=== PATIENT | male | born 1965 | race Caucasian/White ===

== ENCOUNTER → 2019-08-07 16:37 | Outpatient (BNVA) | payer MEDICAID, SELFPAY | PROVIDERS: Family Provider Family Medicine; PCP Nurse Practitioner; Visit Provider Nurse Practitioner Family | DX: R05 Cough (principal); J06.9 Acute upper respiratory infection, unspecified; B96.89 Other specified bacterial agents as the cause of diseases classified elsewhere; F17.210 Nicotine dependence, cigarettes, uncomplicated; Z71.89 Other specified counseling | CPT/HCPCS: 87400 ==

== ENCOUNTER 2019-09-24 11:29 | Outpatient (CLI) | payer MEDICAID, SELFPAY ==
--- NOTE | 2019-09-24 11:42 | XR_ITS ---
WS: [id number] Right hip, AP and frog-leg views, AP pelvis, 09/24/2019 Clinical Data: PAIN IN JOINT Comparison: Left hip, 08/20/2016, right hip, 10/09/2013. Findings: No fractures or dislocations are seen. The hip joints are intact The soft tissues are not remarkable. The adjacent pelvis is normal. The SI joints and pubic symphysis are normal. XR/XR hip RT 2-3V wo/w pel* [id number] Impression: Negative right hip. Negative AP pelvis.
== END 2019-09-24 11:30 | disposition home or self-care (01) ==
LOC: RAD 11:33
PROVIDERS: PCP Nurse Practitioner Family; Visit Provider Nurse Practitioner Family
DX: M25.551 Pain in right hip (principal); M25.50 Pain in unspecified joint
CPT/HCPCS: 73502

== ENCOUNTER → 2019-09-30 12:05 | Outpatient (BNVA) | payer MEDICAID, SELFPAY | PROVIDERS: PCP Nurse Practitioner Family; Visit Provider Nurse Practitioner Family | DX: I10 Essential (primary) hypertension (principal); R60.0 Localized edema | CPT/HCPCS: 80048; 83880 ==

== ENCOUNTER 2019-10-20 07:09 | Outpatient (CLI) | payer MEDICAID, SELFPAY ==
--- NOTE | 2019-10-20 07:15 | USCV_ITS ---
Juve Yadav Age: 54 Gender: M : 1965 Exam Date: 10/20/2019 07:27 Ordering Phys: Micaela Samuel Technologist: Redd Caballero [place]am Location[place] [facility] [place] Indication: PEDAL EDEMA BP: 115 / 78 HR: 72 Rhythm: Sinus Technical Quality: Technically difficult study MEASUREMENTS (Male / Female) Normal Values 2D ECHO LV Diastolic Diameter PLAX 4.6 cm 4.2 - 5.9 / 3.9 - 5.3 cm LV Systolic Diameter PLAX 2.8 cm IVS Diastolic Thickness 1.2 cm 0.6 - 1.0 / 0.6 - 0.9 cm IVS Systolic Thickness 1.2 cm LVPW Diastolic Thickness 1.4 cm 0.6 - 1.0 / 0.6 - 0.9 cm LVPW Systolic Thickness 1.5 cm LVOT Diameter 2.1 cm LV Ejection Fraction 2D Teich 71.0 % LV Ejection Fraction MOD 2C 50.7 % LV Ejection Fraction 2C AL 50.8 % LA Diameter 5.6 cm LA Width 3.6 cm LA Height 5.5 cm RA Width 4.0 cm RA Height 4.8 cm M-MODE LV Diastolic Diameter MM 6.2 cm 4.2 - 5.9 / 3.9 - 5.3 cm LV Systolic Diameter MM 3.8 cm LV Ejection Fraction MM Teich 68.3 % IVS Diastolic Thickness MM 1.7 cm 0.6 - 1.0 / 0.6 - 0.9 cm IVS Systolic Thickness MM 2.7 cm LVPW Diastolic Thickness MM 1.4 cm 0.6 - 1.0 / 0.6 - 0.9 cm LVPW Systolic Thickness MM 2.2 cm RV Diastolic Diameter MM 2.1 cm Aortic Annulus Diameter 5.2 cm LA Ao Ratio MM 1.1 MV E Point Septal Separation 0.7 cm DOPPLER AV Peak Velocity 176.0 cm/s LVOT Peak Velocity 132.0 cm/s AV Area Cont Eq vti 2.6 cm squared AV Area Cont Eq pk 2.5 cm squared MV Area PHT 5.0 cm squared Mitral E to A Ratio 1.2 MV E' Velocity 6.0 cm/s Mitral E to MV E' Ratio 23.7 Mitral E to LV E' Lateral Ratio 20.6 Mitral E to LV E' Septal Ratio 28.7 TR Peak Velocity 253.0 cm/s TR Peak Gradient 25.6 mmHg TV Peak E Velocity 67.0 cm/s Right Atrial Pressure 3.0 mmHg Pulmonary Artery Systolic Pressu 28.6 mmHg PV Peak Velocity 111.0 cm/s FINDINGS Left Ventricle Normal left ventricular cavity size. Normal left ventricular systolic function. No regional wall motion abnormalities. Left ventricular ejection fraction is estimated at 68 %. Grade I/IV diastolic dysfunction (abnormal relaxation filling pattern), normal to mildly elevated filling pressures. Right Ventricle The right ventricle is normal in size and function. Right Atrium The right atrium is normal in size. Left Atrium The left atrium is normal in size. Mitral Valve Mildly thickened mitral valve. No mitral valve stenosis. Trace mitral valve regurgitation. Aortic Valve Mild aortic valve calcification. No aortic valve stenosis. No aortic valve regurgitation. Tricuspid Valve Structurally normal tricuspid valve without significant stenosis or regurgitation. Pulmonary artery systolic pressure is normal. Pulmonic Valve Structurally normal pulmonic valve without significant stenosis. There is no pulmonic regurgitation. Pericardium Normal pericardium without effusion. Aorta Normal ascending aorta dimension. CONCLUSIONS 1-Normal left ventricular cavity size. Normal left ventricular systolic function. No regional wall motion abnormalities. Left ventricular ejection fraction is estimated at 68 %. Grade I/IV diastolic dysfunction (abnormal relaxation filling pattern), normal to mildly elevated filling pressures. 2-Mild aortic valve calcification. No aortic valve stenosis. No aortic valve regurgitation. 3-Mildly thickened mitral valve. No mitral valve stenosis. Trace mitral valve regurgitation. 4-There is no pericardial effusion. 5-Pulmonary artery systolic pressure is within normal limits. 6-Right atrial pressure is around 5 mm of mercury. 7-There are no prior echocardiogram studies to compare. Carlito Hightower MD (Electronically Signed) Final Date: 20 October 2019 19:00 S
== END 2019-10-20 07:10 | disposition home or self-care (01) ==
LOC: RAD 07:09
PROVIDERS: PCP Nurse Practitioner Family; Visit Provider Nurse Practitioner Family
DX: R60.0 Localized edema (principal); I08.0 Rheumatic disorders of both mitral and aortic valves
CPT/HCPCS: 93306

== ENCOUNTER 2019-11-09 11:42 | Outpatient (CLI) | payer MEDICAID, SELFPAY ==
--- NOTE | 2019-11-09 11:45 | USCV_ITS ---
Juve Yadav Age: 54 Gender: M : 1965 Exam Date: 11/09/2019 12:09 Ordering Phys: Micaela Samuel Technologist: Raven Brown [place]am [place] [facility] [place]: HISTORY: Lower extremity edema. PROCEDURES: Bilateral duplex Venous Insufficiency study of the Deep and Superficial systems was carried out according to normal protocol with the patient in supine positon for deep system and dependent position for the superficial system. FINDINGS: All deep veins demonstrated compressibility without evidence of intraluminal thrombus or increased echogenicity. Spectral analysis of Doppler signals demonstrates normal response to compression maneuvers indicating patency without obstruction. Reflux determinations were made with the patient in the dependent position, the weight being on the contralateral leg. Vein measurements and reflux times are listed below were applicable. No notable reflux was seen at this time. CONCLUSIONS No evidence of DVT in the above-mentioned identifiable veins. No significant venous reflux Normal venous dimensions bilaterally The venous dimensions and the depth from the surface are as mentioned above Dr Adrienne Shelton MD [facility] (Electronically Signed) Final Date: 11 November 2019 00:40 S
== END 2019-11-09 11:43 | disposition home or self-care (01) ==
LOC: RAD 11:45
PROVIDERS: PCP Nurse Practitioner Family; Visit Provider Nurse Practitioner Family
DX: R60.0 Localized edema (principal)
CPT/HCPCS: 93970

== ENCOUNTER 2020-02-19 12:32 | Outpatient (CLI) | payer MEDICAID, SELFPAY ==
--- NOTE | 2020-02-19 12:39 | XR_ITS ---
WS: [id number] Chest 2 views, 02/19/2020 Clinical Data: FATIGUE/COUGH/COPD Comparison: Portable chest, 02/24/2018. Findings: No nodules, masses or effusions are seen. The heart is normal. The pulmonary vascularity is not increased. No pneumonia or pneumothorax is seen. There is minimal linear atelectasis overlying t he left lower lobe. The aortic arch and descending aorta are tortuous. XR/XR chest 2V* [id number] Impression: Atherosclerosis.
== END 2020-02-19 12:33 | disposition home or self-care (01) ==
LOC: RAD 12:35
PROVIDERS: PCP Nurse Practitioner Family; Visit Provider Nurse Practitioner Family
DX: R53.83 Other fatigue (principal); R05 Cough; J44.9 Chronic obstructive pulmonary disease, unspecified; I70.90 Unspecified atherosclerosis
CPT/HCPCS: 71046

== ENCOUNTER → 2020-04-27 14:30 | Outpatient (BNVA) | payer MEDICAID, SELFPAY | PROVIDERS: PCP Nurse Practitioner Family; Visit Provider Surgery | DX: Z11.59 Encounter for screening for other viral diseases (principal); R19.5 Other fecal abnormalities | CPT/HCPCS: 87635 ==

== ENCOUNTER 2020-05-03 07:23 | Day surgery (SDC) | payer MEDICAID, SELFPAY ==
[2020-05-02 09:07] VITALS: BMI 47.7
[2020-05-03 07:41] VITALS: BP 139/83; PULSE 90; RESP 18; TEMP 36.3; O2SAT 91
[2020-05-03 07:57] LABS: Glucose Point of Care 144 mg/dL (70-110)
[2020-05-03] MEDS: sodium chloride 0.9% 1,000 ML 30 ML IV (07:58)
--- NOTE | 2020-05-03 08:12 | ANES.PREANE2 ---
Pre-Anesthetic Assessment Pre-Anesthetic Assessment: Height/Weight: Height 1.78 m Weight 151.046 kg Temp Pulse Resp BP Pulse Ox 97.4 F L 90 18 139/83 91 05/03/20 07:41 05/03/20 07:41 05/03/20 07:41 05/03/20 07:41 05/03/20 07:41 Preop Diagnosis: panendoscopy Proposed Procedure: Operation Date: 05/03/20 08:30 Proposed Procedures p EGD/Colon 53811 22688 R19.5(Not Applicable) - Stan Lyle MD s Colonoscopy(Not Applicable) - Stan Lyle MD Familial anesthetic complications: Wakes up violent Was Beta Romelia taken within 24 hours: N/A Last intake: Intake NPO > 8hrs Last Liquid Date 05/02/20 Last Solid Date 05/01/20 Social: Social History: Tobacco and No alcohol Exam: Pre-Anes Outpt Exam: alert, oriented x 3, clear to auscultation bilaterally and regular rate & rhythm Airway: Cervical ROM: WNL MP: 4 Dentition: Other (no teeth) Additional comments: white film over tongue -uses steroid inhaler Pulmonary: Pulmonary: COPD (2 L NC) and Sleep apnea (cpap) Comments: noncompliant w/ O2 and CPAP use CV/HEM: CV/HEM: HTN Metabolic: Metabolic: DM, Hyperlipidemia and Morbid obesity Anesthetic Plan: ASA status: 4 Anesthesia: MAC Risk of > 500 ml blood loss (7ml/kg in children): No Meds/Allergies Current Medications: Current Medications Generic Name Dose Route Start Last Admin Trade Name Freq PRN Reason Stop Dose Admin Sodium Chloride 1,000 mls @ 30 ml s/hr 05/03/20 07:45 05/03/20 07:58 Sodium Chloride 0.9% IV 05/04/20 07:44 30 mls/hr .Q24H JOURDAN Administration PFSH Anesthesia PFSH: Medical History COPD (chronic obstructive pulmonary disease) DDD (degenerative disc disease) Diabetes Diabetic neuropathy HTN (hypertension) On home O2 LALI on CPAP Surgical History H/O colonoscopy 9 years ago H/O oral surgery H/O thumb surgery S/P hernia repair S/P tonsillectomy Family History Father Stroke Other CAD (coronary artery disease) Cancer Diabetes Denies family history of Anesthesia complication Bleeding disorder Social History Smoking and tobacco status: current every day smoker Alcohol intake: never Household members: spouse Marital status: Current occupational status: disabled History of recent travel: No Data Anesthesia Other Labs: Laboratory Results - last 48 hr 05/03/20 07:51 POC Glucose 144 H Cardiac Studies: No Data to Display
--- NOTE | 2020-05-03 09:40 | W.PM.OPSFHP ---
Same Day Surgery H&P Indication for Procedure/HPI DATE OF PROCEDURE: May 03, 2020 CHIEF COMPLAINT/INDICATIONFOR SURGICAL PROCEDURE: panendoscopy PREOP DIAGNOSIS: panendoscopy PLANNED PROCEDRUE: Operation Date: 05/03/20 08:30 Proposed Procedures p EGD/Colon 61070 55225 R19.5(Not Applicable) - Stan Lyle MD s Colonoscopy(Not Applicable) - Stan Lyle MD Medications/Allergies* Home Medications Medication Instructions Recorded Confirmed Type albuterol sulfate 1.25 mg/3 mL 1.25 mg INHALATION QID PRN 07/03/19 05/02/20 History solution for nebulization aspirin 81 mg tablet,delayed 81 mg PO DAILY 07/03/19 05/02/20 History release baclofen 10 mg tablet 10 mg PO TID PRN 07/03/19 05/02/20 History budesonide-formoterol HFA 160 2 puff INHALATION BID 07/03/19 05/02/20 History mcg-4.5 mcg/actuation aerosol inhaler gabapentin 400 mg capsule 400 mg PO QID cap 07/03/19 05/02/20 History oxycodone 10 mg tablet 10 mg PO Q4H PRN 07/03/19 05/02/20 History pravastatin 10 mg tablet 10 mg PO DAILY 07/03/19 05/02/20 History clonidine HCl 0.1 mg tablet 0.1 mg PO BID PRN 07/15/19 05/02/20 History cholecalciferol (vitamin D3) 75 75 mcg PO DAILY 09/30/19 05/02/20 History mcg (3,000 unit) tablet metformin 850 mg tablet 1,000 mg PO BID tab 09/30/19 05/02/20 History methocarbamol 500 mg tablet 500 mg PO TID 04/01/20 05/02/20 History oxygen-air delivery systems #1 04/01/20 04/01/20 History oxygen-air delivery systems #1 04/01/20 04/01/20 History Allergies/Adverse Reactions Allergy/AdvReac Type Severity Reaction Status Date / Time erythromycin base Allergy Severe ALGY-Anaphy Verified 04/01/20 10:42 laxis meclizine Allergy Severe ALGY-Swell Verified 04/01/20 10:42 Lip/Tongue/Throat tramadol [From Ultram] Allergy Severe ALGY-Rash Verified 04/01/20 10:42 varenicline [From Chantix] Allergy Severe ALGY-Swell Verified 04/01/20 10:42 Lip/Tongue/Throat Current Medications: Generic Name Dose Route Start Last Admin Trade Name Brina PRN Reason Stop Dose Admin Sodium Chloride 1,000 mls @ 30 mls/hr 05/03/20 07:45 05/03/20 07:58 Sodium Chloride 0.9% IV 05/04/20 07:44 30 mls/hr .Q24H JOURDAN Administration Pertinent History/Comorbid Conditions* Medical History (Updated 04/01/20 @ 11:16 by Stan Lyle MD) COPD (chronic obstructive pulmonary disease) DDD (degenerative disc disease) Diabetes Diabetic neuropathy HTN (hypertension) On home O2 LALI on CPAP Surgical History (Updated 04/01/20 @ 11:16 by Stan Lyle MD) H/O colonoscopy 9 years ago H/O oral surgery H/O thumb surgery S/P hernia repair S/P tonsillectomy Family History (Updated 04/01/20 @ 10:48 by Kailyn Mays LPN) Diabetes CAD (coronary artery disease) Cancer Stroke Father Denies family history of Anesthesia complication Bleeding disorder Social History Smoking and tobacco status: current every day smoker Alcohol intake: never Household members: spouse Marital status: Current occupational status: disabled History of recent travel: No Pertinent Exam Findings alert, oriented x 3 and regular rate & rhythm Recommendations Surgery/Procedure today Coding Level of Care Code Acute Survey Research Teacher for Elayne Kauffman
[2020-05-03 10:22] VITALS: BP 127/91; PULSE 85; RESP 16; TEMP 36.4; O2SAT 94
[2020-05-03 10:39] VITALS: BP 145/81; PULSE 75; RESP 16; O2SAT 94
--- NOTE | 2020-05-03 14:10 | ANE.PACU2 ---
Inpatient post-anesthesia follow up: Airway intact: Yes Vital signs: Temperature 97.6 F Pulse Rate 75 Respiratory Rate 16 Blood Pressure 145/81 Pulse Oximetry 94 Oxygen Delivery Me thod Room Air Oxygen Flow Rate Fraction of Inspir ed Oxygen Hydration adequate: Yes Nausea and vomiting: No Pain level: 1 Mental status: Baseline
== END 2020-05-03 10:57 | disposition home or self-care (01) ==
PROVIDERS: PCP Nurse Practitioner Family; Visit Provider Surgery
PROC: 0DJ08ZZ Inspection of Upper Intestinal Tract, Via Natural or Artificial Opening Endoscopic (ICD-10-PCS; CPT 43235; principal; 2020-05-03 08:30)
PROC: 0DJD8ZZ Inspection of Lower Intestinal Tract, Via Natural or Artificial Opening Endoscopic (ICD-10-PCS; CPT 45378; 2020-05-03 08:30)
DX: R19.5 Other fecal abnormalities (principal); D12.4 Benign neoplasm of descending colon; R10.12 Left upper quadrant pain; K25.9 Gastric ulcer, unspecified as acute or chronic, without hemorrhage or perforation; J44.9 Chronic obstructive pulmonary disease, unspecified; Z91.14 Patient's other noncompliance with medication regimen; E78.5 Hyperlipidemia, unspecified; E66.01 Morbid (severe) obesity due to excess calories; Z68.42 Body mass index [BMI] 45.0-49.9, adult; E11.40 Type 2 diabetes mellitus with diabetic neuropathy, unspecified; Z99.81 Dependence on supplemental oxygen; G47.33 Obstructive sleep apnea (adult) (pediatric); F17.210 Nicotine dependence, cigarettes, uncomplicated
CPT/HCPCS: 12345; 36416; 43239; 45380; 82962; 88305; J7030

== ENCOUNTER 2020-10-28 07:18 | Outpatient (CLI) | payer MEDICAID, SELFPAY ==
--- NOTE | 2020-10-28 07:26 | NM_ITS ---
WS: [id number] NUCLEAR MEDICINE GASTRIC EMPTYING EXAMINATION HISTORY: NAUSEA WITH VOMITING COMPARISON: None available. TECHNIQUE: The patient ingested a meal containing 1.0 mCi of Tc 99m sulfur colloid mixed with eggs. The patient was placed in supine position and imaging over the abdomen was performed for a total of 9 0 minutes. Computer acquisition with the region of interest placed over the stomach to evaluate gastr ic emptying half-time. Good filling of the stomach with radionuclide food products. 50% gastric emptying near 100 minutes. A 120 minutes 60% emptying. NM/[place] [id number] IMPRESSION: Low normal gastric emptying at 100 minutes.
== END 2020-10-28 07:19 | disposition home or self-care (01) ==
PROVIDERS: PCP Nurse Practitioner Family; Visit Provider Nurse Practitioner
DX: R11.2 Nausea with vomiting, unspecified (principal)
CPT/HCPCS: 78264; A9541

== ENCOUNTER 2020-11-01 09:59 | Outpatient (CLI) | payer MEDICAID, SELFPAY ==
--- NOTE | 2020-11-01 10:15 | CT_ITS ---
WS: [id number] CT ABDOMEN PELVIS TECHNIQUE: Contrast-enhanced CT of the abdomen and pelvis with coronal and sagittal reformatted image s. CLINICAL INFORMATION: ABNORMAL WEIGHT LOSS, NAUSEA AND VOMITING COMPARISON: None. DLP: 931.[address] scans at [facility] use at least one of these dose optimization techniques: automat ed exposure control; mA and/or kV adjustment per patient size (includes targeted exams where dose is matched to clinical indication); or iterative reconstruction. FINDINGS: Hepatomegaly. Diffuse fatty infiltration liver. Normal gallbladder. Normal GE junction. Lung bases ar e well aerated. Small right adrenal adenoma measuring 2.2 CM. Normal GE junction. Fatty atrophy of the pancreas. Nonc ontrast spleen is normal. Adrenal glands are normal. Normal renal parenchymal enhancement. No hydrone phrosis. Normal caliber abdominal aorta. Mild aortic calcification.Right low-attenuation renal lesion measuring 1.8 cm difficult to definitively characterize but likely renal cyst. Smaller presumed left renal cyst. Sigmoid diverticulosis. No evidence of acute diverticulitis. No evidence of high-grade small or large bowel obstruction. Fat-containing wide mouth umbilical hernia. Hernia mouth measures 4.7 CM. Slight herniation of adjacent small bowel loop. No evidence of strangulation or bowel obstruction. No abdomi nal or pelvic lymphadenopathy. CT/CT abdomen pelvis w con* [id number] IMPRESSION: 1. [place] umbilical hernia with hernia mouth measuring 4.7 cm with partiall y herniated loop of small bowel. No evidence of obstruction or incarceration. 2. Hepatomegaly with diffuse fatty infiltration of the liver. 3. Right adrenal adenoma measuring 2.2 CM. 4. Sigmoid diverticulosis. No evidence of bowel obstruction.
[2020-11-01] MEDS: iohexol 300 mg/mL 50 mL Btl PO (10:16)
[2020-11-01] MEDS: iohexol 350 mg/mL 100 mL Btl IV (11:54)
== END 2020-11-01 10:00 | disposition home or self-care (01) ==
PROVIDERS: PCP Nurse Practitioner Family; Visit Provider Nurse Practitioner
DX: R63.4 Abnormal weight loss (principal); R11.2 Nausea with vomiting, unspecified; K42.9 Umbilical hernia without obstruction or gangrene; R16.0 Hepatomegaly, not elsewhere classified; K76.0 Fatty (change of) liver, not elsewhere classified; D35.01 Benign neoplasm of right adrenal gland; K57.30 Diverticulosis of large intestine without perforation or abscess without bleeding
CPT/HCPCS: 74177; Q9967

== ENCOUNTER → 2021-07-04 11:01 | Outpatient (BNVA) | payer MEDICAID, SELFPAY | PROVIDERS: PCP Nurse Practitioner Family; Visit Provider Physician Assistant | DX: M54.50 Low back pain, unspecified (principal); M51.36 Other intervertebral disc degeneration, lumbar region | CPT/HCPCS: 72110 ==

== ENCOUNTER 2021-07-26 07:54 | Outpatient (CLI) | payer MEDICAID, SELFPAY ==
[2021-07-26 08:31] VITALS: BMI 45.9
--- NOTE | 2021-07-26 08:49 | NMCV_ITS ---
NM sandra perf SPECT r/s* [id number] Juve Yadav Age: 55 Gender: M : 1965 Exam Date: 07/26/2021 09:22 Ordering Phys: Van Kelly NP Technologist: ANNE Amaya Exam Location: [facility] Indications: SHORTNESS OF BREATH STRESS TEST Please see separate stress test report in [facility] for full findings IMAGE PROTOCOL Rest/Stress 1 Lexiscan Day Radiopharmaceutical Dose (mCi) Administration Site Administered by Rest: Tc-99m 10.8 IV ANNE Amaya Sestamibi Stress:Tc-99m 32.5 IV ANNE Steward Sestamibi Rest: 26-Jul-2021 60 Discovery 630 Stress: 26-Jul-2021 30 Discovery 630 0.4mg Lexiscan. Supine position only as patient was unable to lay prone. SPECT RESULTS Technical Quality: Excellent Raw Data Analysis: Normal Image Corrections: No attenuation or motion correction applied Summed Stress Score: 0 Summed Rest Score: 5 Summed Difference Score: 0 PERFUSION FINDINGS There is a small sized mostly fixed perfusion defect in the inferolateral wall. This is consistent with small sized prior infarct in this territory FUNCTIONAL RESULTS (calculated via Gated SPECT) Stress Image LV EF (%): 57 Stress EDV (mL):148 TID: 0.88 Stress ESV (mL):64 FUNCTIONAL FINDINGS: There is normal left ventricular systolic function. IMPRESSIONS 1. Small sized prior infact noted in the inferolateral wall. No evidence of ischemia 2. LV systolic function is normal with EF of 57% Arnie Schumacher MD (Electronically Signed) Final Date: 30 July 2021 10:59 S
--- NOTE | 2021-07-26 08:49 | ECG_ITS ---
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 Interpretive Statements NAME OF STUDY: LEXISCAN SESTAMIBI STRESS TEST INDICATION: [venegas, ] Procedure: At the baseline, the blood pressure was 120/72 mmHg with a heart rate of 71 bpm. The electrocardiogram showed normal sinus rhythm,incomplete right bundle branch block, normal axis with normal ST and T's. The Lexiscan was infused over a period of 20 seconds. A total of 0.4 mg of Lexiscan was infused. The stress phase was continued for a total of 5 minutes. Heart rate was at the end of stress phase was 77 bpm and a blood pressure of 144/84 mmHg. The EKG at the peak infusion revealed since normal sinus rhythm with no significant ST-T wave changes. Sestamibi was injected 20 seconds after the Lexiscan infusion. Blood pressure at the end of recovery phase was 151/80 mmHg with a heart rate of 80 bpm. Conclusion: 1. Normal EKG response to Lexiscan infusion 2. No Lexiscan induced chest pain or cardiac arrhythmia. 3. Normal blood pressure and heart rate response. 4. Sestamibi/sestamibi perfusion scan pending; see separate report. Electronically Signed On 08-27-2021 21:19:00 CDT by Arnie Schumacher M.D. [email or web address]
[2021-07-26] MEDS: regadenoson 0.4 Mg/5 ml Syringe IVP (09:58)
[2021-07-26 10:33] VITALS: BP 151/80
== END 2021-07-26 07:55 | disposition home or self-care (01) ==
LOC: CDL 07:55
PROVIDERS: PCP Nurse Practitioner Family; Visit Provider Nurse Practitioner Family
DX: R06.09 Other forms of dyspnea (principal); R06.02 Shortness of breath
CPT/HCPCS: 78452; 93017; A9500; J2785

== ENCOUNTER 2021-11-01 11:45 | Outpatient (CLI) | payer MEDICAID, SELFPAY ==
--- NOTE | 2021-11-01 12:06 | CT_ITS ---
WS: [id number] CT RIGHT HIP, NONCONTRAST, 3-D REFORMATS. HISTORY: PAIN IN R HIP, chronic pain. Technique: All CT scans at [facility] use at least one of these dose optimization techniques: automated exposure control; mA and/or kV adjustment per patient size (includes targeted exams where dose is matched to clinical indication); or iterative reconstruction. DLP: 1750.29 mGy.cm COMPARISON: None available. No acute fracture or dislocation. Mild narrowing of the hip joint. There is a subchondral cyst in the superior lateral acetabulum. There is very mild irregularity involving the cortex of the femoral hea d. No bone fragments. There is a small sclerotic focus in the RIGHT hip. Exophytic nodule measuring 16 x 18 mm from the inferior lateral lower pole RIGHT kidney. This nodule was previously described in 2020. No increase in size. CT/CT hip RT wo con* [id number] IMPRESSION: 1. Very mild narrowing of the joint space and osteoarthritic changes involving the RIGHT hip. 2. No acute fracture. 3. Small subchondral cyst associated with the superior lateral acetabulum.
== END 2021-11-01 11:46 | disposition home or self-care (01) ==
PROVIDERS: PCP Nurse Practitioner Family; Visit Provider Anesthesiology Pain Medicine
DX: M25.551 Pain in right hip (principal)
CPT/HCPCS: 73700

== ENCOUNTER → 2021-11-14 12:41 | Outpatient (BNVA) | payer MEDICAID, SELFPAY | PROVIDERS: PCP Nurse Practitioner Family; Visit Provider Internal Medicine | DX: R00.2 Palpitations (principal); I10 Essential (primary) hypertension; F17.200 Nicotine dependence, unspecified, uncomplicated | CPT/HCPCS: 93225; 99214 ==

== ENCOUNTER → 2021-11-29 09:48 | Outpatient (BNVA) | payer MEDICAID, SELFPAY | PROVIDERS: PCP Nurse Practitioner Family; Visit Provider Orthopaedic Surgery | DX: M16.11 Unilateral primary osteoarthritis, right hip (principal) | CPT/HCPCS: 99212 ==

== ENCOUNTER 2022-01-02 11:20 | Outpatient (CLI) | payer MEDICAID, SELFPAY ==
--- NOTE | 2022-01-02 12:13 | XRR_ITS ---
PROCEDURE INFORMATION: Exam: XR Chest Exam date and time: 01/02/2022 12:13 PM Age: 56 years old Clinical indication: Cough; Additional info: Copd, acute cough TECHNIQUE: Imaging protocol: Radiologic exam of the chest. Views: 2 views. COMPARISON: CR XR chest 2V* [id number] 02/19/2020 12:50 PM FINDINGS: Lungs: Unremarkable. No consolidation. Pleural spaces: Unremarkable. No pleural effusion. No pneumothorax. Heart/Mediastinum: Unremarkable. No cardiomegaly. Bones/joints: Unremarkable. XR/XR chest 2V* [id number] IMPRESSION: No acute findings.
== END 2022-01-02 11:21 | disposition home or self-care (01) ==
PROVIDERS: PCP Nurse Practitioner Family; Visit Provider Family Medicine
DX: J44.1 Chronic obstructive pulmonary disease with (acute) exacerbation (principal)
CPT/HCPCS: 71046

== ENCOUNTER 2022-02-16 12:20 | Outpatient (RCR) | payer MEDICAID, SELFPAY | END 2022-03-14 23:59 | disposition home or self-care (01) | LOC: SPT 12:20 | PROVIDERS: PCP Nurse Practitioner Family; Visit Provider Anesthesiology Pain Medicine | DX: M54.50 Low back pain, unspecified (principal); G89.29 Other chronic pain | CPT/HCPCS: 97110; 97161 ==

== ENCOUNTER 2022-03-22 10:58 | Outpatient (CLI) | payer MEDICAID, SELFPAY ==
--- NOTE | 2022-03-22 11:23 | XR_ITS ---
WS: [id number] EXAMINATION: XR chest 2V* [id number] REASON FOR EXAM: ABNORMAL CHEST XRAY COMPARISON: 01/02/2022 02/19/2020 ORDER DATE: 03/22/2022 11:27 AM FINDINGS: The lungs are clear of infiltrate with unchanged bibasilar atelectatic changes slightly greater on the left. There is an ovoid soft tissue density poorly defined in the left cardiophrenic angle which may be projecting posteriorly on the lateral view near the diaphragm and/or somewhat merging with ate lectatic change. Although this is similar in appearance on 01/02/2022, it was not present on 02/19/2020 . There are generalized chronic lung changes The cardiac and mediastinal outlines are unremarkable. T here are no significant pleural effusions . No significant abnormalities are noted in the spine or re mainder of the bony thorax. XR/XR chest 2V* [id number] IMPRESSION: CONCERN FOR PULMONARY NODULE OR PLEURAL-BASED MASS IN THE LEFT BASE, RECOMMEND CT IMAGING OF THE CHEST FOR FURTHER CORRELATION. DIFFUSE COPD.
== END 2022-03-22 10:59 | disposition home or self-care (01) ==
PROVIDERS: PCP Nurse Practitioner Family; Visit Provider Nurse Practitioner Family
DX: R91.8 Other nonspecific abnormal finding of lung field (principal); J44.9 Chronic obstructive pulmonary disease, unspecified
CPT/HCPCS: 71046

== ENCOUNTER 2022-03-27 14:09 | Outpatient (CLI) | payer OTHER, MEDICAID, SELFPAY ==
--- NOTE | 2022-03-27 14:34 | CT_ITS ---
WS: [id number] CT CHEST TECHNIQUE: Contrast enhanced CT of the chest with coronal and sagittal reformatted images. CLINICAL INFORMATION: COUGH, R/O PULMONARY LESION COMPARISON: None. DLP: 741.[address] scans at [facility] use at least one of these dose optimization techniques: automated e xposure control; mA and/or kV adjustment per patient size (includes targeted exams where dose is matc hed to clinical indication); or iterative reconstruction. FINDINGS: Enlarged heterogeneous thyroid compatible with goiter. Mild chronic emphysematous changes. No acute p ulmonary infiltrates. No focal pneumonia or pleural fluid. Slight subsegmental atelectasis in the eda g bases and lingula. Normal caliber ascending and descending thoracic aorta. Proximal main pulmonary arteries are normal. Coronary calcification. No mediastinal or hilar lymphadenopathy. No axillary lym phadenopathy. RIGHT adrenal adenoma measuring 2.0 cm unchanged. LEFT adrenal gland is normal. Small LEFT renal cyst . Hepatomegaly. Diffuse fatty infiltration liver. Normal GE junction. Celiac and SMA are patent. Smal l fat-containing LEFT posterior diaphragmatic hernia unchanged since CTA 2018. This corresponds to th e area described on the recent radiograph. CT/CT chest w con* [id number] IMPRESSION: 1. Mild chronic emphysematous changes. No acute pulmonary infiltrates. 2. Subsegmental atelectasis in the lung bases and lingula. 3. No focal pneumonia or pleural fluid. 4. Hypertrophic changes thoracic spine.
[2022-03-27] MEDS: iohexol 350 mg/mL 500 mL Btl (per mL) IV (14:58)
== END 2022-03-27 14:10 | disposition home or self-care (01) ==
LOC: RAD 14:09
PROVIDERS: PCP Nurse Practitioner Family; Visit Provider Family Medicine
DX: R05.9 Cough, unspecified (principal); J98.11 Atelectasis
CPT/HCPCS: 71260; Q9967

== ENCOUNTER → 2022-05-23 14:15 | Outpatient (BNVA) | payer MEDICAID, SELFPAY | PROVIDERS: PCP Nurse Practitioner Family; Visit Provider Internal Medicine | DX: I10 Essential (primary) hypertension (principal); I49.1 Atrial premature depolarization; R00.2 Palpitations; J44.9 Chronic obstructive pulmonary disease, unspecified; F17.200 Nicotine dependence, unspecified, uncomplicated | CPT/HCPCS: 99214 ==

== ENCOUNTER 2022-12-05 15:04 | Emergency (ER) | payer MEDICAID, SELFPAY ==
[2022-12-05 15:08] VITALS: BP 133/81; PULSE 71; RESP 20; O2SAT 92
--- NOTE | 2022-12-05 15:40 | ED_ITS ---
HPI - Extremity Injury (Upper) General: Chief Complaint: Extremity Injury, Upper Stated Complaint: left shoulder pain Time Seen by Provider: 12/05/22 15:25 Source: patient Mode of arrival: ambulatory Limitations: no limitations History of Present Illness: Patient is a nice 57-year-old male presents to ED today with complaint of left shoulder pain. He states approximately a week ago he accidentally tripped and fell and landed on his left outstretched hand. He had some minor discomforts to the hand and shoulder following the fall but nothing that limited activities or movement. He states 2 days ago he was getting up off the floor after playing with his grandchildren and was pushing up when he immediately noticed pain in the left shoulder. Pain has been persistent since then. He denies any numbness, tingling, loss of sensation to the left upper extremity. He is reporting limited range of motion secondary to pain. Denies any other injuries or complaints at this time. MD complaint: injury to: left and shoulder Onset (ago): day(s) Other Extremity Injury: Left: shoulder Other injuries: none Place: home Severity: moderate Relieving factors: immobilization Exacerbating factors: movement of extremity Context: fall Associated symptoms: Reports no associated symptoms; Denies neck pain or weakness in extremities Review of Systems Const: Denies: fever(s), chills, body aches, fatigue or malaise Eyes: Denies: change in vision, blurry vision or photophobia Card: Denies: chest pain, palpitations, irregular heart rhythm, lightheadedness, syncope or pre-syncope Resp: Denies: dyspnea, pain on inspiration or chest congestion Musc: Reports: joint pain (L shoulder) and limited range of motion (L shoulder); Denies: neck pain, back pain, extremity pain, extremity swelling, joint swelling, joint redness or joint warmth Skin/Breast: Denies: rash Neuro: Denies: headache(s), numbness in extremities, weakness in extremities, sensory changes, difficulty walking or dizziness PFS ED PFSH: Medical History COPD (chronic obstructive pulmonary disease) DDD (degenerative disc disease) Diabetes Diabetic neuropathy HTN (hypertension) On home O2 LALI on CPAP Surgical History H/O colonoscopy (05/03/20) 9 years ago H/O esophagogastroduodenoscopy (05/03/20) H/O oral surgery H/O thumb surgery S/P hernia repair S/P tonsillectomy Family History Father Stroke Other CAD (coronary artery disease) Cancer Diabetes Denies family history of Anesthesia complication Bleeding disorder Social History Smoking and tobacco status: current every day smoker Alcohol intake: never Substance/Drug Use: never Household members: spouse Marital status: Current occupational status: disabled Physical Exam Const: COMMON NORMALS: no acute distress, patient oriented x3, no limitations, alert and well nourished GENERAL APPEARANCE: cooperative NUTRITIONAL APPEARANCE: obese ORIENTATION/CONSCIOUSNESS: Yes awake, Yes oriented to person, Yes oriented to place and Yes oriented to time HENMT: COMMON NORMALS: normocephalic and atraumatic HEAD & SCALP: normal to inspection, normocephalic and atraumatic FACE & SINUS: normal facial exam Neck/C-Spine: COMMON NORMALS: full ROM, no lymphadenopathy and no meningeal signs GENERAL: Yes normal visual inspection CERVICAL SPINE: Yes cervical ROM normal, No pain with cervical ROM, No Cervical spine tenderness and No Paracervical muscle tenderness Chest: COMMONS NORMALS: normal inspection of the chest and normal palpation of entire chest wall Resp: COMMON NORMALS: normal respiratory effort and clear to auscultation bilaterally AUSCULTATION: clear to auscultation bilaterally Cardio: COMMON NORMALS: regular rate and regular rhythm RATE: regular rate RHYTHM: regular rhythm Back/Pelvis: COMMON NORMALS: thoracic and lumbar spine normal to inspection, no thoracic nor lumbar tenderness and thoraco-lumbar ROM normal Extremity: COMMON NORMALS: normal to inspection, capillary refill normal, no joint enlargement, no clubbing, cyanosis or edema, no calf tenderness and no ped al edema GENERAL: Yes normal exam except as noted LEFT UPPER EXTREMITY: Yes shoulder joint Left shoulder joint: Yes inspection (normal gross inspe ction), Yes palpation (TTP overlying posterior shoulder and AC joint), Yes ROM (limited abduction/flexion secondary to pain ) and Yes neurovascular exam (normal) Neuro: MAHAMED COMA SCALE: document GCS findings [place] coma scale eye opening: Spontaneous Mahamed coma scale verbal response: Orientated [place] coma scale motor response: Obey commands Mahamed coma scale total score: 15 COMMON NORMALS: patient oriented x3, moves all extremities, no focal motor deficits and no sensory deficits noted SENSORIUM/ORIENTATION: Yes alert, Yes oriented to person, Yes oriented to place and Yes oriented to time MENINGEAL SIGNS: Yes no meningeal signs MOTOR EXAM: 5/5 motor strength present throughout Skin: COMMON NORMALS: no rashes or lesions noted GENERAL SKIN EXAM: no rashes or lesions noted Course Vital Signs: Vital signs: Vital Signs Pulse Rate 71 12/05/22 15:08 Respiratory Rate 20 H 12/05/22 15:08 Blood Pressure 133/81 12/05/22 15:08 Pulse Oximetry 92 12/05/22 15:08 Oxygen Delivery Me thod Room Air 12/05/22 15:08 MDM - Extremity Injury (Upper) Medical Decision Making XR negative. Conservative therapies discussed and he can follow up with PCP in 1-2 weeks if symptoms persist. Discharge Plan Discharge Patient Disposition: Home Clinical Impression: Acute pain of left shoulder Condition: Stable Prescriptions: New cyclobenzaprine 10 mg tablet 10 mg PO TID Qty: 14 0RF ibuprofen 600 mg tablet 600 mg PO Q8H PRN (Reason: pain) Qty: 20 0RF No Action cholecalciferol (vitamin D3) 75 mcg (3,000 unit) tablet 75 mcg PO DAILY (DME) oxygen-air delivery systems Device See Rx Instructions .ROUTE .MEDSUPPLY Qty: 1 Patient Comments: 2 liters Rx Instructions: As directed (DME) oxygen-air delivery systems Device See Rx Instructions .ROUTE .MEDSUPPLY Qty: 1 Rx Instructions: As directed amlodipine 5 mg tablet 5 mg PO DAILY gabapentin 400 mg capsule 400 mg PO QID oxycodone 10 mg tablet 10 mg PO Q4H PRN (Reason: Pain) albuterol sulfate 1.25 mg/3 mL solution for nebulization 1.25 mg INHALATION QID PRN (Reason: Shortness Of Breath) aspirin [Aspir-81] 81 mg tablet,delayed release (DR/EC) 81 mg PO DAILY pravastatin 10 mg tablet 10 mg PO DAILY metformin 850 mg tablet 1,000 mg PO BID hydrochlorothiazide 12.5 mg capsule 12.5 mg PO DAILY Qty: 90 1RF clonidine HCl 0.1 mg tablet 0.1 mg PO BID PRN (Reason: Blood Pressure) Qty: 60 1RF losartan 100 mg tablet 100 mg PO DAILY Qty: 90 2RF potassium chloride 20 mEq tablet extended release 20 meq PO DAILY Qty: 90 3RF Rx Instructions: Take daily with Furosemide for edema. Discharge Orders: Discharge ED (Routine); Ordered 12/05/22 Ordered By: Clarice Drew Referrals: Van Kelly NP [Primary Care Provider] - Activity Restrictions/Additional Instructions: As discussed please follow-up with your primary care in regards to your left shoulder pain if symptoms do not seem to be improving over the next 1 to 2 weeks. Coding Level of Care Code ED [employer] for Elayne Kauffman
--- NOTE | 2022-12-05 15:48 | XR_ITS ---
WS: [id number] EXAMINATION: XR shoulder LT min 2V* [id number] REASON FOR EXAM: fall/shoulder pain COMPARISON: None available. ORDER DATE: 12/05/2022 3:50 PM TECHNIQUE: 3 views of the left shoulder were obtained. X-RAY FINDINGS: No fractures or dislocations. Normal motion of the shoulder with internal/external rotation. No degenerative changes. Acromioclavicular joint appears unremarkable. Limited visualization of the adjacent hemithorax is unremarkable. IMPRESSION: No fractures or dislocations of the left shoulder.
[2022-12-05] MEDS: dexamethasone 10 mg/mL INJ 8 MG IM (16:50)
[2022-12-05] MEDS: ketorolac 30 mg/mL INJ IM (16:51)
== END 2022-12-05 16:52 | disposition home or self-care (01) ==
PROVIDERS: Emergency Provider Physician Assistant; PCP Nurse Practitioner Family
DX: M25.512 Pain in left shoulder (principal); Z79.82 Long term (current) use of aspirin; Z79.84 Long term (current) use of oral hypoglycemic drugs; J44.9 Chronic obstructive pulmonary disease, unspecified; E11.9 Type 2 diabetes mellitus without complications; I10 Essential (primary) hypertension; Z99.81 Dependence on supplemental oxygen; F17.210 Nicotine dependence, cigarettes, uncomplicated
CPT/HCPCS: 73030; 96372; 99284; J1100; J1885

== ENCOUNTER → 2023-02-20 12:44 | Outpatient (BNVA) | payer MEDICAID, SELFPAY | PROVIDERS: PCP Nurse Practitioner Family; Visit Provider Internal Medicine | DX: E66.9 Obesity, unspecified (principal); Z68.41 Body mass index [BMI] 40.0-44.9, adult; Z72.0 Tobacco use; G47.33 Obstructive sleep apnea (adult) (pediatric); Z99.89 Dependence on other enabling machines and devices; I10 Essential (primary) hypertension; J44.9 Chronic obstructive pulmonary disease, unspecified; R60.0 Localized edema; R00.2 Palpitations; E11.40 Type 2 diabetes mellitus with diabetic neuropathy, unspecified; Z79.84 Long term (current) use of oral hypoglycemic drugs | CPT/HCPCS: 99214 ==

== ENCOUNTER 2023-03-15 12:29 | Outpatient (CLI) | payer OTHER, SELFPAY ==
--- NOTE | 2023-03-15 12:32 | CT_ITS ---
WS: [id number] CT chest w con* [id number] HISTORY: ?MASS IN LATERAL LLL TECHNIQUE: Axial imaging performed through the thorax. Coronal and sagittal reformats are submitted. All CT scans at [facility] use at least one of these dose optimization techniques: automated exposure control; mA and/or kV adjustment per patient size (includes targeted exams where dose is mat ched to clinical indication); or iterative reconstruction. CONTRAST: Omnipaque 350; 100 mL IV. DLP: 813.54 mGy.cm COMPARISON: 03/27/2022, chest radiograph 03/22/2022 Lungs and central airway: Lungs are normally aerated. No pulmonary mass or nodule. Minimal subsegment al atelectasis at the lung bases. There is also a diaphragmatic hernia containing fat in the posterio r medial LEFT lower lung.. Pleura: Normal. No pleural effusion. Heart and pericardium: Normal size heart with no pericardial effusion. Mediastinum and babatunde: No mediastinum or hilar adenopathy. Vessels: Mild atherosclerosis aorta. Normal sized pulmonary artery. Chest wall and lower neck: Enlarged bilateral thyroid. LEFT thyroid extends into the upper thorax by 7.8 cm. There is very slight mass effect upon the trachea. Upper abdomen: RIGHT adrenal adenoma measuring 2.4 x 2.0 cm. Negative liver. Normal portal vein. Nega tive gallbladder. Osseous structures: No destructive process. IMPRESSION: 1. No pulmonary mass or nodule. 2. Fat-containing diaphragmatic hernia at the medial LEFT lung base with minimal bibasilar atelectasi s. 3. No adenopathy. 4. Substernal thyroid. 5. Stable RIGHT adrenal adenoma.
[2023-03-15] MEDS: iohexol 350 mg/mL 500 mL Btl (per mL) IV (12:53)
== END 2023-03-15 12:30 | disposition home or self-care (01) ==
LOC: RAD 12:29
PROVIDERS: PCP Nurse Practitioner Family; Visit Provider Family Medicine
DX: J98.4 Other disorders of lung (principal); J98.11 Atelectasis; D35.01 Benign neoplasm of right adrenal gland
CPT/HCPCS: 71260; Q9967

== ENCOUNTER → 2023-04-22 13:24 | Outpatient (BNVA) | payer OTHER, SELFPAY | PROVIDERS: PCP Nurse Practitioner Family; Visit Provider Specialist | DX: M25.512 Pain in left shoulder (principal); M75.82 Other shoulder lesions, left shoulder | CPT/HCPCS: 20610; 73030; 99204; J1100; J2795; J3301 ==

== ENCOUNTER 2023-06-26 10:53 | Outpatient (CLI) | payer OTHER, SELFPAY ==
--- NOTE | 2023-06-26 11:01 | XRR_ITS ---
PROCEDURE INFORMATION: Exam: XR Chest Exam date and time: 06/26/2023 11:08 AM Age: 57 years old Clinical indication: Condition or disease; Lung condition and disease; Copd; With exacerbation; Additional info: Acute exacerbation, copd TECHNIQUE: Imaging protocol: Radiologic exam of the chest. Views: 2 views. COMPARISON: 1. CT chest w con* [id number] 03/15/2023 12:52 PM 2. CR XR chest 2V* [id number] 03/22/2022 11:27 AM FINDINGS: Lungs: Left mid and lower lung zone linear atelectasis versus scarring. No consolidation. Pleural spaces: No substantial pleural effusion or pneumothorax. Heart/Mediastinum: Unremarkable. No cardiomegaly. Vasculature: Aortic atherosclerotic calcification. Bones/joints: Mild degenerative change along the spine. XR/XR chest 2V* [id number] IMPRESSION: No acute findings.
== END 2023-06-26 10:54 | disposition home or self-care (01) ==
LOC: RAD 10:54
PROVIDERS: PCP Nurse Practitioner Family; Visit Provider Family Medicine
DX: J44.1 Chronic obstructive pulmonary disease with (acute) exacerbation (principal)
CPT/HCPCS: 71046

== ENCOUNTER 2023-07-12 18:08 | Emergency (ER) | payer OTHER, SELFPAY ==
[2023-07-12 18:27] VITALS: BP 127/81; PULSE 72; RESP 16; TEMP 36.6; O2SAT 93
--- NOTE | 2023-07-12 18:52 | XRR_ITS ---
PROCEDURE INFORMATION: Exam: XR Lumbosacral Spine Exam date and time: 07/12/2023 7:06 PM Age: 57 years old Clinical indication: Lumbago with sciatica; Right; Patient HX: Low back pain radiating to RT lower leg; No previous injury TECHNIQUE: Imaging protocol: Radiologic exam of the lumbosacral spine. Views: 2 or 3 views. COMPARISON: CT abdomen pelvis w con* [id number] 11/01/2020 11:51 AM FINDINGS: Bones/joints: Moderate degenerative disc disease at L5-S1. Soft tissues: Unremarkable. XR/XR lumbar spine 2-3V* [id number] IMPRESSION: Moderate degenerative disc disease at L5-S1.
[2023-07-12] MEDS: orphenadrine 30 mg/mL Inj 2 mL 60 MG IM (19:43)
--- NOTE | 2023-07-12 19:51 | W.ED.EXTPRO ---
Documented by User: DOM Gutiérrez 07/12/23 21:49 HPI - Extremity Problem General: Chief complaint: Extremity Problem,Nontraumatic Stated complaint: right hip and right leg pain,chronic back pain Time Seen by Provider: 07/12/23 18:30 Source: patient Mode of arrival: ambulatory Limitations: no limitations History of Present Illness: Patient is a 57-year-old male who presents to the emergency department complaining of right lower back pain. Patient reports he had this pain chronically but has worsening over the past couple days. He denies any recent trauma. He is chronically on oxycodone as well as methocarbamol, but notes this has not touched his current pain. He notes radiation of the pain down the right lower extremity, however states he has this intermittently. He normally is ambulatory with a cane, however has been requiring use of a wheelchair recently. He denies any bowel or bladder incontinence, fevers, saddle anesthesia, new distal neurovascular issues, or any other symptoms. Pain has been more constant, however he notes intermittent waves of sharp stabbing pain. He has a history of lumbar degenerative disc disease as well as peripheral neuropathy. MD Complaint: other (Right lower back pain) Pain Consistency: constant Location: right Quality: stabbing and sharp Radiation: distal Relieving factors: nothing Exacerbating factors: range of motion, weight bearing, walking and exertion Associated symptoms: Deny chest pain, fever(s) or rash Review of Systems General: Reports: 10 or more systems reviewed and unremarkable except in HPI and below Const: Denies: fever(s), chills or fatigue Eyes: Denies: change in vision ENMT: Denies: throat pain, ear or mastoid pain or nasal discharge Card: Denies: chest pain, palpitations, swelling of feet/ankles or lightheadedness Resp: Denies: dyspnea, productive cough or wheezing GI: Denies: abdominal pain, nausea, vomiting, diarrhea or constipation : Denies: flank pain, difficulty urinating, dysuria or urinary frequency Musc: Reports: back pain and extremity pain (Right lower extremity); Denies: neck pain or joint pain Skin/Breast: Denies: rash Neuro: Denies: headache(s), numbness in extremities or weakness in extremities PFSH ED PFSH: Medical History DDD (degenerative disc disease) Diabetes Diabetic neuropathy LALI on CPAP On home O2 COPD (chronic obstructive pulmonary disease) HTN (hypertension) Surgical History H/O esophagogastroduodenoscopy (05/03/20) H/O oral surgery H/O thumb surgery H/O colonoscopy (05/03/20) 9 years ago S/P tonsillectomy S/P hernia repair Family History Father Stroke Other CAD (coronary artery disease) Cancer Diabetes Denies family history of Anesthesia complication Bleeding disorder Social History Smoking and tobacco/nicotine status: current every day tobacco/nicotine user Alcohol intake: never Substance/Drug Use: never Household members: spouse Marital status: Current occupational status: disabled Physical Exam Const: COMMON NORMALS: no acute distress, patient oriented x3 and no limitations GENERAL APPEARANCE: cooperative and well developed NUTRITIONAL APPEARANCE: obese morbidly obese ORIENTATION/CONSCIOUSNESS: Yes awake, Yes oriented to person, Yes oriented to place and Yes oriented to time HENMT: COMMON NORMALS: normocephalic, atraumatic and hearing grossly normal bilaterally HEAD & SCALP: normocephalic and atraumatic Eye: COMMON NORMALS: Equal, round and reactive pupils present, EOMs intact bilaterally and conjunctivae normal CONJUNCTIVA: Yes conjunctivae normal PUPIL: Yes Equal, round and reactive pupils present Neck/C-Spine: COMMON NORMALS: full ROM, supple and no JVD Resp: COMMON NORMALS: normal respiratory effort, No retractions, No use of accessory muscles and clear to auscultation bilaterally AUSCULTATION: clear to auscultation bilaterally Cardio: COMMON NORMALS: no JVD, regular rate, regular rhythm, No clicks present (Cardio), No murmurs present (Cardio) and No rub (Cardio) RATE: regular rate RHYTHM: regular rhythm Back/Pelvis: COMMON NORMALS: thoracic and lumbar spine normal to inspection and no thoracic nor lumbar tenderness THORACIC SPINE/UPPER BACK: Yes normal to inspection LUMBAR SPINE/LOWER BACK: Yes normal to inspection, Yes ROM limited, Yes pain with ROM, No lumbar spinal tenderness, Yes paraspinal muscle tenderness Lumbar paraspinal muscle tenderness: right and Yes straight leg raise positive right Extremity: COMMON NORMALS: normal to inspection, full ROM and capillary refill normal Neuro: COMMON NORMALS: patient oriented x3, moves all extremities, no focal motor deficits and no sensory deficits noted SENSORIUM/ORIENTATION: Yes oriented to person, Yes oriented to place and Yes oriented to time Psych: COMMON NORMALS: mental status grossly normal and Normal thought process present THOUGHT PROCESS: Normal thought process present Skin: COMMON NORMALS: no rashes or lesions noted GENERAL SKIN EXAM: no rashes or lesions noted Course Vital Signs: Vital signs: Vital Signs Temperature 98 F 07/12/23 20:58 Pulse Rate 75 07/12/23 20:58 Respiratory Rate 14 07/12/23 20:58 Blood Pressure 124/80 07/12/23 20:58 Pulse Oximetry 95 07/12/23 20:58 Oxygen Delivery Me thod Room Air 07/12/23 20:29 MDM - Extremity (Nontraumatic) Medical Decision Making This patient seen and evaluated in the emergency department due to acute on chronic right lower back pain. Patient has stated this pain is similar to the chronic pain he has had for years, however his normal medications are not taking care of the pain this time. No red flag symptoms reported. Exam remarkable for some reproducible paralumbar tenderness on the right to palpation. X-ray of the low spine showed some unchanged degenerative disc disease from previous x-ray 2 years ago. Patient was given shots of morphine and Norflex, and upon recheck states that his pain had improved. Put in a referral for orthopedics for patient to follow-up for potential MRI. Otherwise, patient will be discharged home. Patient agrees with this plan and will take his medications as usual. Return precautions given. Lab Data Radiology Impressions Lumbar Spine X-Ray 07/12/23 18:52 IMPRESSION: Moderate degenerative disc disease at L5-S1. All radiology interpretation(s) finalized by discharge Discharge Plan Discharge Patient Disposition: Home Clinical Impression: Degenerative disc disease, lumbar Lumbar strain Qualifiers: Encounter type: initial encounter Qualified Code(s): S39.012A - Strain of muscle, fascia and tendon of lower back, initial encounter Condition: Stable Prescriptions: No Action cholecalciferol (vitamin D3) 75 mcg (3,000 unit) tablet 75 mcg PO DAILY (DME) oxygen-air delivery systems Device See Rx Instructions .ROUTE .MEDSUPPLY Qty: 1 Patient Comments: 2 liters Rx Instructions: As directed (DME) oxygen-air delivery systems Device See Rx Instructions .ROUTE .MEDSUPPLY Qty: 1 Rx Instructions: As directed amlodipine 5 mg tablet 5 mg PO DAILY gabapentin 400 mg capsule 400 mg PO QID oxycodone 10 mg tablet 10 mg PO Q4H PRN (Reason: Pain) albuterol sulfate 1.25 mg/3 mL solution for nebulization 1.25 mg INHALATION QID PRN (Reason: Shortness Of Breath) aspirin [Aspir-81] 81 mg tablet,delayed release (DR/EC) 81 mg PO DAILY metformin 850 mg tablet 1,000 mg PO BID pravastatin 10 mg tablet 40 mg PO DAILY hydrochlorothiazide 12.5 mg capsule 12.5 mg PO DAILY Qty: 90 1RF clonidine HCl 0.1 mg tablet 0.1 mg PO BID PRN (Reason: Blood Pressure) Qty: 60 1RF losartan 100 mg tablet 100 mg PO DAILY Qty: 90 2RF potassium chloride 20 mEq tablet extended release 20 meq PO DAILY Qty: 90 3RF Rx Instructions: Take daily with Furosemide for edema. cyclobenzaprine 10 mg tablet 10 mg PO TID Qty: 14 0RF ibuprofen 600 mg tablet 600 mg PO Q8H PRN (Reason: pain) Qty: 20 0RF Discharge Orders: Discharge ED (Routine); Ordered 07/12/23 Ordered By: Alhaji Dorado Referrals: Van Kelly NP [Primary Care Provider] - Discharge Diet: Usual diet Discharge Activity: Increase activity as tolerated Patient Instructions: Degenerative Disc Disease (ED) Activity Restrictions/Additional Instructions: Take pain medications as usual. Continue taking muscle relaxer. Follow-up with orthopedics as instructed. Return with any new or concerning symptoms. 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 [employer] Documented by User: London Wong DO 07/18/23 12:45 HPI - Extremity Problem General: Chief complaint: Extremity Problem,Nontraumatic Stated complaint: right hip and right leg pain,chronic back pain Time Seen by Provider: 07/12/23 18:30 COUNTS INCLUDE 234 BEDS AT THE [facility] ED PFSH: Medical History DDD (degenerative disc disease) Diabetes Diabetic neuropathy LALI on CPAP On home O2 COPD (chronic obstructive pulmonary disease) HTN (hypertension) Surgical History H/O esophagogastroduodenoscopy (05/03/20) H/O oral surgery H/O thumb surgery H/O colonoscopy (05/03/20) 9 years ago S/P tonsillectomy S/P hernia repair Family History Father Stroke Other CAD (coronary artery disease) Cancer Diabetes Denies family history of Anesthesia complication Bleeding disorder Social History Smoking and tobacco/nicotine status: current every day tobacco/nicotine user Alcohol intake: never Substance/Drug Use: never Household members: spouse Marital status: Current occupational status: disabled Course Vital Signs: Vital signs: Vital Signs Temperature 98 F 07/12/23 20:58 Pulse Rate 75 07/12/23 20:58 Respiratory Rate 14 07/12/23 20:58 Blood Pressure 124/80 07/12/23 20:58 Pulse Oximetry 95 07/12/23 20:58 Oxygen Delivery Me thod Room Air 07/12/23 20:29 MDM - Extremity (Nontraumatic) Medical Decision Making This patient seen and evaluated in the emergency department due to acute on chronic right lower back pain. Patient has stated this pain is similar to the chronic pain he has had for years, however his normal medications are not taking care of the pain this time. No red flag symptoms reported. Exam remarkable for some reproducible paralumbar tenderness on the right to palpation. X-ray of the low spine showed some unchanged degenerative disc disease from previous x-ray 2 years ago. Patient was given shots of morphine and Norflex, and upon recheck states that his pain had improved. Put in a referral for orthopedics for patient to follow-up for potential MRI. Otherwise, patient will be discharged home. Patient agrees with this plan and will take his medications as usual. Return precautions given. Chart reviewed Lab Data Radiology Impressions Lumbar Spine X-Ray 07/12/23 18:52 IMPRESSION: Moderate degenerative disc disease at L5-S1. Discharge Plan Discharge Patient Disposition: Home Clinical Impression: Degenerative disc disease, lumbar Lumbar strain Qualifiers: Encounter type: initial encounter Qualified Code(s): S39.012A - Strain of muscle, fascia and tendon of lower back, initial encounter Condition: Stable Prescriptions: No Action cholecalciferol (vitamin D3) 75 mcg (3,000 unit) tablet 75 mcg PO DAILY (DME) oxygen-air delivery systems Device See Rx Instructions .ROUTE .MEDSUPPLY Qty: 1 Patient Comments: 2 liters Rx Instructions: As directed (DME) oxygen-air delivery systems Device See Rx Instructions .ROUTE .MEDSUPPLY Qty: 1 Rx Instructions: As directed amlodipine 5 mg tablet 5 mg PO DAILY gabapentin 400 mg capsule 400 mg PO QID oxycodone 10 mg tablet 10 mg PO Q4H PRN (Reason: Pain) albuterol sulfate 1.25 mg/3 mL solution for nebulization 1.25 mg INHALATION QID PRN (Reason: Shortness Of Breath) aspirin [Aspir-81] 81 mg tablet,delayed release (DR/EC) 81 mg PO DAILY metformin 850 mg tablet 1,000 mg PO BID pravastatin 10 mg tablet 40 mg PO DAILY hydrochlorothiazide 12.5 mg capsule 12.5 mg PO DAILY Qty: 90 1RF clonidine HCl 0.1 mg tablet 0.1 mg PO BID PRN (Reason: Blood Pressure) Qty: 60 1RF losartan 100 mg tablet 100 mg PO DAILY Qty: 90 2RF potassium chloride 20 mEq tablet extended release 20 meq PO DAILY Qty: 90 3RF Rx Instructions: Take daily with Furosemide for edema. cyclobenzaprine 10 mg tablet 10 mg PO TID Qty: 14 0RF ibuprofen 600 mg tablet 600 mg PO Q8H PRN (Reason: pain) Qty: 20 0RF Discharge Orders: Discharge ED (Routine); Ordered 07/12/23 Ordered By: Alhaji Dorado Referrals: Van Kelly NP [Primary Care Provider] - Discharge Diet: Usual diet Discharge Activity: Increase activity as tolerated Patient Instructions: Degenerative Disc Disease (ED) Activity Restrictions/Additional Instructions: Take pain medications as usual. Continue taking muscle relaxer. Follow-up with orthopedics as instructed. Return with any new or concerning symptoms. 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
[2023-07-12 20:16] VITALS: RESP 16
[2023-07-12] MEDS: morphine 4 mg/mL SDV 1 mL IM (20:16)
[2023-07-12 20:29] VITALS: BP 124/80; PULSE 75; RESP 14; O2SAT 95
[2023-07-12 20:58] VITALS: BP 124/80; PULSE 75; RESP 14; TEMP 36.6; O2SAT 95
--- NOTE | 2023-07-15 09:16 | PC.SOCIAL ---
RFS- Records sent to [facility] for ortho f/u.
--- NOTE | 2023-07-17 09:58 | PC.SOCIAL ---
Ortho Referral Referral to clinic at this time. Clinic to contact patient with appt date/time.
== END 2023-07-12 20:59 | disposition home or self-care (01) ==
PROVIDERS: Emergency Provider Physician Assistant; PCP Nurse Practitioner Family
DX: M51.36 Other intervertebral disc degeneration, lumbar region (principal); S39.012A Strain of muscle, fascia and tendon of lower back, initial encounter; Z79.82 Long term (current) use of aspirin; Z79.84 Long term (current) use of oral hypoglycemic drugs; J44.9 Chronic obstructive pulmonary disease, unspecified; I10 Essential (primary) hypertension; Z72.0 Tobacco use; E11.42 Type 2 diabetes mellitus with diabetic polyneuropathy; Z79.891 Long term (current) use of opiate analgesic; X58.XXXA Exposure to other specified factors, initial encounter
CPT/HCPCS: 72100; 96372; 99284; J2270; J2360

== ENCOUNTER → 2023-08-06 15:07 | Outpatient (BNVA) | payer OTHER, MEDICAID, SELFPAY | PROVIDERS: PCP Nurse Practitioner Family; Referring Provider Family Medicine; Visit Provider Orthopaedic Surgery | DX: M54.50 Low back pain, unspecified (principal); M79.604 Pain in right leg; M54.9 Dorsalgia, unspecified | CPT/HCPCS: 72110; 99214 ==

== ENCOUNTER → 2023-08-28 15:19 | Outpatient (BNVA) | payer OTHER, SELFPAY | PROVIDERS: PCP Nurse Practitioner Family; Visit Provider Podiatrist Foot & Ankle Surgery | DX: M79.672 Pain in left foot (principal); M79.671 Pain in right foot; E11.42 Type 2 diabetes mellitus with diabetic polyneuropathy; L84 Corns and callosities; M72.2 Plantar fascial fibromatosis; M77.40 Metatarsalgia, unspecified foot; G62.9 Polyneuropathy, unspecified; L60.3 Nail dystrophy; Z79.84 Long term (current) use of oral hypoglycemic drugs | CPT/HCPCS: 11057; 73630; 99203 ==

== ENCOUNTER 2023-09-04 15:20 | Outpatient (CLI) | payer OTHER, SELFPAY ==
--- NOTE | 2023-09-04 16:00 | MR_ITS ---
WS: [id number] MRI LUMBAR SPINE NONCONTRAST TECHNIQUE: Sagittal T1, T2 and STIR imaging. Axial T1 and T2 imaging. CLINICAL INFORMATION: back pain COMPARISON: Outside open field limited MRI 11/28/2015 FINDINGS: LEFT paracentral disc osteophyte protrusion C5-C6 on the cervical spine replenisher imaging with indentation and slight impingement on the cervical cord. This could be further evaluated with cervica l spine MRI. Counting performed from the craniocervical junction. Only 4 lumbar type vertebral bodies. Small rible ts at T12. First sacral segment is considered L5 for the purposes of this dictation. Subcutaneous lipomas in the dorsal paravertebral soft tissues these are partially visualized in 2016. Largest lipoma in the LEFT perispinal fat measures 4.1 x 3.3 cm. L1-L2: Mild facet arthropathy. Spinal canal and foramen are patent. L2-L3: Mild annular bulging. Mild central canal stenosis. Mild facet arthropathy. Small bilateral for aminal protrusions with mild bilateral foraminal narrowing LEFT greater than RIGHT. This appears prog ressed compared to previous. L3-L4: Mild annular bulging. Moderate facet arthropathy. Mild LEFT and no significant RIGHT foraminal narrowing. Spinal canal is patent. L4-L5: Mild annular bulging. Slight impingement of traversing nerve roots bilaterally. Severe LEFT gr eater than RIGHT foraminal narrowing with impingement on the exiting nerve roots bilaterally. Moderat e facet arthropathy. L5-S1: L5 is sacralized. Spinal canal and foramen appear patent. Visualized pelvic bony structures: Normal. Paravertebral soft tissues: Normal. Partially evaluated bilateral renal cysts. Slightly aneurysmal infrarenal abdominal aorta measuring 3 .1 x 3.3 cm AP by transverse. Diffuse edema partially visualized in the RIGHT sacrum incompletely evaluated. Recommend further eval uation with sacral MRI. This is indeterminant and at the edge of the [id number] MR/MR lumbar spine wo con* [id number] IMPRESSION: 1. Counting performed from the craniocervical junction. Only 4 lumbar type erinn tebral bodies. Small riblets at T12. First sacral segment is considered L5 for the purposes of this dictation. 2. LEFT paracentral disc osteophyte protrusion C5-C6 cervical spine replenisher clyde ging with indentation and slight impingement on the cervical cord. This could b e further evaluated with cervical spine MRI. 3. Slightly aneurysmal infrarenal abdominal aorta measuring 3.1 x 3.3 cm AP by transverse. This could be further evaluated with ultrasound or CTA 4. Diffuse edema partially visualized in the RIGHT sacrum incompletely evaluat ed. Recommend further evaluation with sacral MRI. This is indeterminate and at the edge of the [id number]. Bony lesion or traumatic contusion or fracture a re considerations. 5. Mild central canal stenosis L2-3 due to disc bulging with facet arthropathy and ligamentum flavum hypertrophy. Mild LEFT greater than RIGHT foraminal narr owing at this level due to small foraminal protrusions. 6. Mild central canal stenosis L4-5 with impingement on the traversing nerve r oots bilaterally. Severe LEFT greater than RIGHT foraminal narrowing at this le ana. 7. Moderate facet arthropathy worse at L4-5.
== END 2023-09-04 15:21 | disposition home or self-care (01) ==
PROVIDERS: PCP Nurse Practitioner Family; Visit Provider Orthopaedic Surgery
DX: M47.816 Spondylosis without myelopathy or radiculopathy, lumbar region (principal); M25.78 Osteophyte, vertebrae; D17.1 Benign lipomatous neoplasm of skin and subcutaneous tissue of trunk; M51.86 Other intervertebral disc disorders, lumbar region; M48.061 Spinal stenosis, lumbar region without neurogenic claudication; Q76.49 Other congenital malformations of spine, not associated with scoliosis; Q61.02 Congenital multiple renal cysts
CPT/HCPCS: 72148

== ENCOUNTER → 2024-01-17 09:59 | Outpatient (BNVA) | payer MEDICAID, SELFPAY | PROVIDERS: PCP Nurse Practitioner Family; Visit Provider Internal Medicine | DX: I10 Essential (primary) hypertension (principal); Z72.0 Tobacco use; E66.9 Obesity, unspecified; Z68.41 Body mass index [BMI] 40.0-44.9, adult; G47.33 Obstructive sleep apnea (adult) (pediatric); Z99.89 Dependence on other enabling machines and devices; J44.9 Chronic obstructive pulmonary disease, unspecified; E11.40 Type 2 diabetes mellitus with diabetic neuropathy, unspecified; Z79.84 Long term (current) use of oral hypoglycemic drugs | CPT/HCPCS: 99213 ==

== ENCOUNTER 2024-01-21 13:07 | Outpatient (CLI) | payer MEDICAID, SELFPAY ==
--- NOTE | 2024-01-21 13:12 | CT_ITS ---
WS: [id number] LDCT LUNG CANCER SCREENING TECHNIQUE: Noncontrast CT of the chest with coronal and sagittal reformatted images. CLINICAL INFORMATION: NICOTINE DEPENDENCE,CIGARETTES COMPARISON: CT chest 03/15/2023 DLP: 173.99 mGy.cm DIvol: Mean CTDIvol: 4.50 (mGy) All CT scans at [facility] use at least one of these dose optimization techniques: automat ed exposure control; mA and/or kV adjustment per patient size (includes targeted exams where dose is matched to clinical indication); or iterative reconstruction. FINDINGS: Stable noncalcified nodule RIGHT lower lobe measuring 6 mm. Tiny subpleural nodule RIGHT lo wer lobe along the diaphragm. RIGHT adrenal adenoma measuring 2.5 cm. Fat-containing diaphragmatic hernia posterior medial LEFT low er lobe similar to previous. No mediastinal or hilar lymphadenopathy. Mild aortic calcification. LEFT substernal thyroid extends i nto the upper mediastinum. Mild associated mass effect on the trachea is similar in appearance. Coronary calcification. Normal GE junction. Small LEFT renal cyst. Mild thoracic kyphosis and hypertr ophic changes thoracic spine. Mild chronic emphysematous changes. Subsegmental atelectasis RIGHT midd le lobe. Hazy atelectasis LEFT greater than RIGHT lower lobes. CT/CT lung screening [id number] IMPRESSION: LUNG-RADS: 2-Benign Appearance or Behavior FOLLOW UP: 12 Month: Continue annual screening with LDCT
== END 2024-01-21 13:08 | disposition home or self-care (01) ==
LOC: RAD 13:08
PROVIDERS: PCP Nurse Practitioner Family; Visit Provider Family Medicine
DX: Z12.2 Encounter for screening for malignant neoplasm of respiratory organs (principal); F17.210 Nicotine dependence, cigarettes, uncomplicated; R91.8 Other nonspecific abnormal finding of lung field; D35.01 Benign neoplasm of right adrenal gland; K42.9 Umbilical hernia without obstruction or gangrene; I25.84 Coronary atherosclerosis due to calcified coronary lesion; N28.1 Cyst of kidney, acquired; J98.11 Atelectasis
CPT/HCPCS: 71271

== ENCOUNTER → 2024-05-26 15:05 | Outpatient (BNVA) | payer MEDICAID, SELFPAY | PROVIDERS: PCP Nurse Practitioner Family; Visit Provider Emergency Medicine | DX: R05.9 Cough, unspecified (principal); J11.1 Influenza due to unidentified influenza virus with other respiratory manifestations | CPT/HCPCS: 87400 ==

== ENCOUNTER 2024-10-27 13:44 | Outpatient (CLI) | payer MEDICAID, SELFPAY ==
--- NOTE | 2024-10-27 14:10 | XRR_ITS ---
PROCEDURE INFORMATION: Exam: XR Left Foot Exam date and time: 10/27/2024 2:27 PM Age: 59 years old Clinical indication: Left; Lt foot pain towards lateral side. PT states foot May of been hit by sippy cup x one week ago. ; Additional info: Left foot pain TECHNIQUE: Imaging protocol: Radiologic exam of the left foot. Views: 3 or more views. COMPARISON: No relevant prior studies available. FINDINGS: Bones/joints: Plantar calcaneal spurring. Midfoot arthrosis. No acute fracture or traumatic malalignment. Soft tissues: Normal. XR/XR foot LT min 3V* [id number] IMPRESSION: As above
== END 2024-10-27 13:45 | disposition home or self-care (01) ==
LOC: RAD 13:47
PROVIDERS: PCP Nurse Practitioner Family; Visit Provider Family Medicine
DX: M77.32 Calcaneal spur, left foot (principal); M19.072 Primary osteoarthritis, left ankle and foot
CPT/HCPCS: 73630